=== PATIENT | female | born 1965 | race Caucasian/White ===

== ENCOUNTER 2017-08-02 03:46 | Emergency (ER) | payer SELFPAY ==
[~2017-08-02] VITALS: Ht 170.1 cm; Wt 79.4 kg
[~2017-08-02 03:46] MED LIST: CYCLOBENZAPRINE10 MG PO; DAYPRO600 M1 PO; MOTRIN800 MG PO; Motrin,Rufen800 MG PO; NAPROSYN500 MG PO; NKHM; ROBAXIN750 MG PO; VICODIN 5/500 505 MG PO
[2017-08-02 03:56] VITALS: BP 142/99
[2017-08-02] MEDS ORDERED: NAPROSYN500 MG PO (04:06)
== END 2017-08-02 04:14 | disposition home or self-care (01) ==
LOC: ED 03:46
DX: M25.512 Pain in left shoulder (principal); F17.200 Nicotine dependence, unspecified, uncomplicated; Z90.49 Acquired absence of other specified parts of digestive tract

== ENCOUNTER 2017-12-02 18:31 | Emergency (ER) | payer SELFPAY ==
[~2017-12-02] VITALS: Ht 170.1 cm; Wt 77.1 kg
[2017-12-02 18:49] VITALS: BP 126/82
[2017-12-02] MEDS ORDERED: AMOXICILLIN500 M2 PO (20:02)
[2017-12-02] MEDS ORDERED: PREDNISONE20 M1 PO (20:02)
[2017-12-02] MEDS ORDERED: FLONASE ALLERG9.9 ML NAS (20:02)
== END 2017-12-02 20:13 | disposition home or self-care (01) ==
LOC: ED 18:31
DX: J01.90 Acute sinusitis, unspecified (principal); J20.9 Acute bronchitis, unspecified; F17.200 Nicotine dependence, unspecified, uncomplicated; F10.10 Alcohol abuse, uncomplicated; Z90.49 Acquired absence of other specified parts of digestive tract; Z98.51 Tubal ligation status

== ENCOUNTER 2018-11-08 22:35 | Emergency (ER) | payer SELFPAY ==
[~2018-11-08 22:35] MED LIST changes: +AMOXICILLIN500 M2 PO; +FLONASE ALLERG9.9 ML NAS; +PREDNISONE20 M1 PO
[2018-11-08 22:37] VITALS: BP 115/62
== END 2018-11-08 23:50 | disposition home or self-care (01) ==
LOC: ED 22:35
DX: L30.9 Dermatitis, unspecified (principal)

== ENCOUNTER 2021-07-10 12:22 | Emergency (ER) | payer OTHER ==
[~2021-07-10] VITALS: Ht 170.1 cm; Wt 78.9 kg
[2021-07-10 12:39] VITALS: BP 143/54
[2021-07-10] MEDS ORDERED: INDOMETHACIN50 MG PO (15:14)
== END 2021-07-10 15:19 | disposition home or self-care (01) ==
LOC: ED 12:22
DX: M25.561 Pain in right knee (principal); F17.200 Nicotine dependence, unspecified, uncomplicated

== ENCOUNTER 2023-04-11 16:46 | Emergency (ER) | payer OTHER ==
[~2023-04-11] VITALS: Ht 170.1 cm; Wt 77.1 kg
[~2023-04-11 16:46] MED LIST changes: +INDOMETHACIN50 MG PO
[2023-04-11 17:04] VITALS: BP 129/71
[2023-04-11 17:47] LABS: BASO % 0.5 % (0.0-1.0); EOS # 0.2 10*3/uL (0.0-0.4); EOS % 3.1 % (1.0-4.0); HEMATOCRIT 35.7 % (37.0-47.0); LYMPH # 1.6 10*3/uL (1.3-4.4); LYMPH % 26.1 % (27.0-41.0); MEAN CELL VOLUME 85.4 fl (81.0-99.0); MEAN CORPUSCULAR HGB 29.4 pg (27.0-31.0); MEAN CORPUSCULAR HGB CONC 34.5 g/dl (33.0-37.0); MEAN PLATELET VOLUME 10.4 fl (9.6-12.3); MONO # 0.4 10*3/uL (0.1-1.0); MONO % 7.1 % (3.0-9.0); NEUT # 3.8 10*3/uL (2.3-7.9); PLATELET COUNT AUTOMATED 102 10*3/uL (130-400); RED BLOOD COUNT 4.18 10*6/uL (4.10-5.10); RED CELL DISTRI WIDTH 12.1 % (0-14.5); WHITE BLOOD COUNT 6.1 10*3/uL (4.8-10.8)
[2023-04-11 18:01] LABS: BILIRUBIN Negative (Negative); BLOOD Trace-Lysed (Negative); CLARITY Clear (Clear); COLOR Dark Yellow (Yellow); GLUCOSE Negative (Negative); KETONE Trace (Negative); LEUKO ESTERASE Negative (Negative); NITRITE Negative (Negative); PH 6.5 (4.5-8.0); SPECIFIC GRAVITY 1.025 (1.001-1.030)
[2023-04-11 18:13] LABS: BACTERIA 1+; CALCIUM OXALATE CRYSTALS 1+; MUCOUS 1+
[2023-04-11 18:13] LABS: ALKALINE PHOSPHATASE 70 U/L (46-116); BUN 11 mg/dl (9-23); CHLORIDE 107 mmol/L (98-107); LIPASE 25 U/L (12-53); POTASSIUM 3.6 mmol/L (3.4-5.1); TOTAL PROTEIN 6.4 gm/dL (6.0-8.0)
[2023-04-11 18:16] LABS: SGPT/ALT < 7 U/L (10-49)
[2023-04-11] MEDS ORDERED: IBU800 M1 PO (18:59)
[2023-04-11] MEDS ORDERED: CIPRO500 MG PO (18:59)
== END 2023-04-11 19:03 | disposition home or self-care (01) ==
LOC: ED 16:46
PROVIDERS: Physician Assistant Medical
DX: N12 Tubulo-interstitial nephritis, not specified as acute or chronic (principal); R06.02 Shortness of breath; Z79.899 Other long term (current) drug therapy; Z98.51 Tubal ligation status; Z90.49 Acquired absence of other specified parts of digestive tract

== ENCOUNTER 2023-07-17 16:22 | Emergency (ER) | payer OTHER ==
[~2023-07-17] VITALS: Ht 170.1 cm; Wt 72.6 kg
[~2023-07-17 16:22] MED LIST changes: +CIPRO500 MG PO; +IBU800 M1 PO
[2023-07-17 17:17] VITALS: BP 130/64
== END 2023-07-17 19:41 | disposition home or self-care (01) ==
LOC: ED 16:22
DX: S60.221A Contusion of right hand, initial encounter (principal); Z90.49 Acquired absence of other specified parts of digestive tract; Z98.51 Tubal ligation status; W22.8XXA Striking against or struck by other objects, initial encounter; Y93.89 Activity, other specified; Y92.89 Other specified places as the place of occurrence of the external cause; Y99.0 Civilian activity done for income or pay

== ENCOUNTER 2023-10-11 09:20 | Emergency (ER) | payer MEDICAID ==
[~2023-10-11] VITALS: Ht 170.1 cm; Wt 73.5 kg
[2023-10-11 09:28] VITALS: BP 137/70
[2023-10-11 12:19] LABS: BASO % 0.5 % (0.0-1.0); EOS # 0.3 10*3/uL (0.0-0.4); EOS % 5.8 % (1.0-4.0); HEMATOCRIT 40.4 % (37.0-47.0); LYMPH # 1.6 10*3/uL (1.3-4.4); LYMPH % 27.7 % (27.0-41.0); MEAN CELL VOLUME 84.7 fl (81.0-99.0); MEAN CORPUSCULAR HGB 28.7 pg (27.0-31.0); MEAN CORPUSCULAR HGB CONC 33.9 g/dl (33.0-37.0); MEAN PLATELET VOLUME 10.3 fl (9.6-12.3); MONO # 0.2 10*3/uL (0.1-1.0); MONO % 4.1 % (3.0-9.0); NEUT # 3.6 10*3/uL (2.3-7.9); NEUT % 61.7 % (47.0-73.0); PLATELET COUNT AUTOMATED 124 10*3/uL (130-400); RED BLOOD COUNT 4.77 10*6/uL (4.10-5.10); RED CELL DISTRI WIDTH 13.5 % (0-14.5); WHITE BLOOD COUNT 5.9 10*3/uL (4.8-10.8)
[2023-10-11 12:37] LABS: ALKALINE PHOSPHATASE 75 U/L (46-116); BUN 6 mg/dl (9-23); CHLORIDE 109 mmol/L (98-107); LIPASE 56 U/L (12-53); POTASSIUM 3.7 mmol/L (3.4-5.1); SGPT/ALT 7 U/L (5-49); TOTAL PROTEIN 7.2 gm/dL (6.0-8.0)
[2023-10-11 13:11] LABS: BILIRUBIN Negative (Negative); BLOOD Trace-Lysed (Negative); CLARITY Clear (Clear); COLOR Yellow (Yellow); GLUCOSE Negative (Negative); KETONE Negative (Negative); LEUKO ESTERASE Negative (Negative); NITRITE Negative (Negative); PH 5.5 (4.5-8.0); UROBILINOGEN 0.2 E.U./dl (0.0-1.0)
[2023-10-11 13:26] LABS: BACTERIA TRACE; MUCOUS 1+
[2023-10-11] MEDS ORDERED: PERCOCET 5-3251 EACH PO (14:30)
== END 2023-10-11 14:34 | disposition home or self-care (01) ==
LOC: ED 09:20
PROVIDERS: Nurse Practitioner
DX: K85.90 Acute pancreatitis without necrosis or infection, unspecified (principal); Z90.49 Acquired absence of other specified parts of digestive tract; Z98.51 Tubal ligation status; Z98.890 Other specified postprocedural states

== ENCOUNTER → 2023-11-13 | Day surgery (SDC) | payer MEDICAID ==
[~2023-11-13] VITALS: Ht 167.6 cm; Wt 71.7 kg
[~2023-11-13] MED LIST changes: +Balanced Salt Solution 500 ML OPH SCH; +Cefuroxime Sodium 5 MG in BALANCED SALT IRRIG SOLN NO.2 0.5 ML,SYRINGE, DISPOSABLE, 10 ... IO SCH; +Midazolam Hydrochloride 5 MG/ML VIAL IV ONE; +OFLOXACIN 0.3% 5 ML BOTTLE ONE; +OFLOXACIN 0.3% 5 ML BOTTLE OPH SCH; +PERCOCET 5-3251 EACH PO; +PHENYLEPHRINE/KETOROLAC 4 ML in Balanced Salt Solution 500 ML OPH SCH; +POVIDONE IODINE 5% OPHTHALMIC 30 ML BOTTLE OPH ONE; +POVIDONE IODINE 5% OPHTHALMIC 30 ML BOTTLE OPH SCH; +PROTONIX40 MG PO; +Phenylephrine Hydrochloride 2 ML BOT OPH ONE; +Phenylephrine Hydrochloride 2 ML BOT OPH SCH; +Proparacaine Hydrochloride 15 ML BOT OPH ONE; +Proparacaine Hydrochloride 15 ML BOT OPH SCH; +SODIUM CHLORIDE 0.9% 1,000 ML IV SCH; +SODIUM CHLORIDE 0.9% 10 ML VIAL IV ONE; +TROPICAMIDE 15 ML BOT OPH ONE; +TROPICAMIDE 15 ML BOT OPH SCH; +Tetracaine Hydrochloride 0.5% 4 ML BOT OPH ONE; +Tetracaine Hydrochloride 0.5% 4 ML BOT OPH SCH; +prednisoLONE acetate 1% OPHTHALMIC 5 ML BOT OPH ONE; +prednisoLONE acetate 1% OPHTHALMIC 5 ML BOT OPH SCH
[2023-11-13 12:18] VITALS: BP 124/50
[2023-11-13 13:27] VITALS: BP 130/65
[2023-11-13 13:42] VITALS: BP 138/59
[2023-11-13 13:57] VITALS: BP 117/50
== END | disposition home or self-care (01) ==
LOC: SDC 11-08 10:15
PROVIDERS: ATTEND Ophthalmology
DX: H25.811 Combined forms of age-related cataract, right eye (principal); H25.11 Age-related nuclear cataract, right eye; Z79.899 Other long term (current) drug therapy

== ENCOUNTER 2023-11-15 21:22 | Emergency (ER) | payer MEDICAID ==
[~2023-11-15] VITALS: Ht 170.1 cm; Wt 69.9 kg
[2023-11-15 21:22] VITALS: BP 170/60
[~2023-11-15 21:22] MED LIST changes: -Balanced Salt Solution 500 ML OPH SCH; -Cefuroxime Sodium 5 MG in BALANCED SALT IRRIG SOLN NO.2 0.5 ML,SYRINGE, DISPOSABLE, 10 ... IO SCH; -Midazolam Hydrochloride 5 MG/ML VIAL IV ONE; -OFLOXACIN 0.3% 5 ML BOTTLE ONE; -OFLOXACIN 0.3% 5 ML BOTTLE OPH SCH; -PHENYLEPHRINE/KETOROLAC 4 ML in Balanced Salt Solution 500 ML OPH SCH; -POVIDONE IODINE 5% OPHTHALMIC 30 ML BOTTLE OPH ONE; -POVIDONE IODINE 5% OPHTHALMIC 30 ML BOTTLE OPH SCH; -Phenylephrine Hydrochloride 2 ML BOT OPH ONE; -Phenylephrine Hydrochloride 2 ML BOT OPH SCH; -Proparacaine Hydrochloride 15 ML BOT OPH ONE; -Proparacaine Hydrochloride 15 ML BOT OPH SCH; -SODIUM CHLORIDE 0.9% 1,000 ML IV SCH; -SODIUM CHLORIDE 0.9% 10 ML VIAL IV ONE; -TROPICAMIDE 15 ML BOT OPH ONE; -TROPICAMIDE 15 ML BOT OPH SCH; -Tetracaine Hydrochloride 0.5% 4 ML BOT OPH ONE; -Tetracaine Hydrochloride 0.5% 4 ML BOT OPH SCH; -prednisoLONE acetate 1% OPHTHALMIC 5 ML BOT OPH ONE; -prednisoLONE acetate 1% OPHTHALMIC 5 ML BOT OPH SCH
[2023-11-15] MEDS ORDERED: SODIUM CHLORIDE 0.9% 1,000 ML IV ONE (22:20)
[2023-11-15] MEDS ORDERED: Ondansetron Hydrochloride 4 MG/2 ML VIAL IV ONE (22:20)
[2023-11-15] MEDS ORDERED: MORPHINE Sulfate 2 MG/ML SYR IV ONE (22:20)
[2023-11-15] MEDS ORDERED: HYDROmorphONE Hydrochloride 0.5 MG/0.5 ML SYRINGE IV ONE (22:25)
[2023-11-15 22:53] LABS: BASO % 0.5 % (0.0-1.0); EOS # 0.2 10*3/uL (0.0-0.4); EOS % 2.8 % (1.0-4.0); HEMATOCRIT 39.1 % (37.0-47.0); LYMPH # 1.9 10*3/uL (1.3-4.4); LYMPH % 32.5 % (27.0-41.0); MEAN CELL VOLUME 85.4 fl (81.0-99.0); MEAN CORPUSCULAR HGB 28.8 pg (27.0-31.0); MEAN CORPUSCULAR HGB CONC 33.8 g/dl (33.0-37.0); MEAN PLATELET VOLUME 10.3 fl (9.6-12.3); MONO # 0.4 10*3/uL (0.1-1.0); MONO % 6.6 % (3.0-9.0); NEUT # 3.3 10*3/uL (2.3-7.9); NEUT % 57.4 % (47.0-73.0); PLATELET COUNT AUTOMATED 133 10*3/uL (130-400); RED BLOOD COUNT 4.58 10*6/uL (4.10-5.10); RED CELL DISTRI WIDTH 12.7 % (0-14.5); WHITE BLOOD COUNT 5.7 10*3/uL (4.8-10.8)
[2023-11-15 23:12] LABS: ALKALINE PHOSPHATASE 65 U/L (46-116); BUN 8 mg/dl (9-23); CHLORIDE 102 mmol/L (98-107); LIPASE 27 U/L (12-53); POTASSIUM 3.7 mmol/L (3.4-5.1)
[2023-11-15 23:31] LABS: SGPT/ALT < 7 U/L (5-49)
[2023-11-16 00:59] LABS: BILIRUBIN Negative (Negative); BLOOD 2+ (Negative); CLARITY Clear (Clear); COLOR Yellow (Yellow); GLUCOSE Negative (Negative); KETONE Negative (Negative); LEUKO ESTERASE Trace (Negative); NITRITE Negative (Negative)
[2023-11-16 01:13] LABS: BACTERIA 1+; EPITHELIAL CELLS 21-30; RBC 21-30 rbc/hpf (0-2)
[2023-11-16] MEDS ORDERED: ZITHROMAX250 MG PO (04:13)
== END 2023-11-16 04:57 | disposition home or self-care (01) ==
LOC: ED 21:22
PROVIDERS: Nurse Practitioner Family
DX: K85.90 Acute pancreatitis without necrosis or infection, unspecified (principal); M47.816 Spondylosis without myelopathy or radiculopathy, lumbar region; R91.1 Solitary pulmonary nodule; J98.4 Other disorders of lung; K21.9 Gastro-esophageal reflux disease without esophagitis; Z79.899 Other long term (current) drug therapy; Z90.49 Acquired absence of other specified parts of digestive tract; Z98.51 Tubal ligation status

== ENCOUNTER 2024-04-13 16:06 | Emergency (ER) | payer MEDICAID ==
[~2024-04-13] VITALS: Ht 165.1 cm; Wt 62.1 kg
[~2024-04-13 16:06] MED LIST changes: +ZITHROMAX250 MG PO
[2024-04-13 17:13] VITALS: BP 143/71
[2024-04-13] MEDS ORDERED: Acetaminophen/Oxycodone 5 MG/325 MG TABLET PO ONE ×2 (17:50→20:30)
== END 2024-04-13 20:57 | disposition home or self-care (01) ==
LOC: ED 16:06
DX: C25.9 Malignant neoplasm of pancreas, unspecified (principal); G89.29 Other chronic pain; F17.200 Nicotine dependence, unspecified, uncomplicated; Z79.2 Long term (current) use of antibiotics; Z79.899 Other long term (current) drug therapy; Z90.49 Acquired absence of other specified parts of digestive tract; Z98.51 Tubal ligation status

== ENCOUNTER 2024-06-25 00:17 | Emergency (ER) | payer MEDICAID ==
[~2024-06-25] VITALS: Ht 170.2 cm; Wt 59.0 kg
[2024-06-25] MEDS ORDERED: ELIQUIS5 M1 PO (00:33)
[2024-06-25] MEDS ORDERED: SODIUM CHLORIDE 0.9% 1,000 ML IV ONE (01:00)
[2024-06-25] MEDS ORDERED: HYDROmorphONE Hydrochloride 1 MG/ML SYR IV ONE ×5 (01:00→14:45)
[2024-06-25] MEDS ORDERED: Ondansetron Hydrochloride 4 MG/2 ML VIAL IV ONE (01:00)
[2024-06-25 01:16] LABS: BASO % 0.3 % (0.0-1.0); EOS # 0.2 10*3/uL (0.0-0.4); EOS % 2.5 % (1.0-4.0); HEMATOCRIT 37.7 % (37.0-47.0); LYMPH # 0.3 10*3/uL (1.3-4.4); LYMPH % 5.4 % (27.0-41.0); MEAN CELL VOLUME 92.2 fl (81.0-99.0); MEAN CORPUSCULAR HGB 30.3 pg (27.0-31.0); MEAN CORPUSCULAR HGB CONC 32.9 g/dl (33.0-37.0); MEAN PLATELET VOLUME 9.8 fl (9.6-12.3); MONO # 0.7 10*3/uL (0.1-1.0); MONO % 12.3 % (3.0-9.0); NEUT # 4.7 10*3/uL (2.3-7.9); NEUT % 79.2 % (47.0-73.0); PLATELET COUNT AUTOMATED 144 10*3/uL (130-400); RED BLOOD COUNT 4.09 10*6/uL (4.10-5.10); RED CELL DISTRI WIDTH 13.8 % (0-14.5)
[2024-06-25 01:32] LABS: ALKALINE PHOSPHATASE 128 U/L (46-116); BUN 9 mg/dl (9-23); CHLORIDE 101 mmol/L (98-107); LIPASE 22 U/L (12-53); POTASSIUM 3.6 mmol/L (3.4-5.1)
[2024-06-25 01:33] LABS: SGPT/ALT < 7 U/L (5-49)
[2024-06-25] MEDS ORDERED: IOHEXOL 300 MG/ML 100 ML VIAL IV ONE (02:10)
[2024-06-25 02:14] LABS: BILIRUBIN Negative (Negative); BLOOD Negative (Negative); CLARITY Clear (Clear); COLOR Yellow (Yellow); GLUCOSE 2+ (Negative); KETONE Trace (Negative); LEUKO ESTERASE Negative (Negative); NITRITE Negative (Negative); PH 5.5 (4.5-8.0); SPECIFIC GRAVITY >= 1.030 (1.001-1.030)
[2024-06-25 02:27] LABS: FINE GRANULAR CAST 0-2; MUCOUS 1+; RBC 0-2 rbc/hpf (0-2); WBC 0-2 wbc/hpf (0-5)
[2024-06-25] MEDS ORDERED: fentaNYL CITRATE 100 MCG/2 ML VIAL IV ONE ×4 (02:50→08:10)
[2024-06-25] MEDS ORDERED: MORPHINE Sulfate 30 MG TAB PO ONE (10:10)
[2024-06-25] MEDS ORDERED: PROTEASE PO ONE (12:30)
[2024-06-25] MEDS ORDERED: LIPASE PO ONE (12:30)
[2024-06-25] MEDS ORDERED: AMYLASE PO ONE (12:30)
[2024-06-25 14:46] VITALS: BP 130/67
== END 2024-06-25 17:18 | disposition short-term general hospital (02) ==
LOC: ED 00:17
PROVIDERS: Emergency Medicine
DX: C25.9 Malignant neoplasm of pancreas, unspecified (principal); C78.7 Secondary malignant neoplasm of liver and intrahepatic bile duct; R19.00 Intra-abdominal and pelvic swelling, mass and lump, unspecified site; Z90.49 Acquired absence of other specified parts of digestive tract; Z98.51 Tubal ligation status; Z87.891 Personal history of nicotine dependence